=== PATIENT | female | born 1965 | race Caucasian/White ===

== ENCOUNTER 2019-03-12 11:08 | Day surgery (SDC) | payer MEDICAID ==
[~2019-03-12] VITALS: Ht 162.6 cm; Wt 87.4 kg
[2019-03-12 11:15] VITALS: BP 144/90
[2019-03-12] MEDS ORDERED: normal saline 1000ml 1,000 ML IV SCH (11:30)
[2019-03-12 12:06] LABS: BASOPHILS # (AUTO) 0.1 X10'3 (0-0.2); BASOPHILS % (AUTO) 1.2 % (0-1); EOSINOPHILS # (AUTO) 0.3 X10'3 (0-0.9); EOSINOPHILS % (AUTO) 6.3 % (0-6); HEMATOCRIT 41.3 % (35.0-45.0); HEMOGLOBIN 13.9 g/dl (12.0-16.0); LYMPHOCYTES # (AUTO) 2.1 X10'3 (1.1-4.8); LYMPHOCYTES % (AUTO) 45.1 % (21-51); MEAN CORPUSCULAR HEMOGLOBIN 31.1 PG (27.0-31.0); MEAN CORPUSCULAR HGB CONC 33.6 g/dL (33.0-36.5); MEAN CORPUSCULAR VOLUME 92.4 FL (78-98); MEAN PLATELET VOLUME 6.7 FL (7.4-10.4); MONOCYTES # (AUTO) 0.5 X10'3 (0-0.9); MONOCYTES % (AUTO) 10.3 % (2-12); NEUTROPHILS # (AUTO) 1.7 X10'3 (1.8-7.7); NEUTROPHILS % (AUTO) 37.1 % (42-75); PLATELET COUNT 435 X10'3 (140-440); RED BLOOD COUNT 4.46 X10'6 (4.20-5.60); WHITE BLOOD COUNT 4.6 X10'3 (4.5-11.0)
[2019-03-12 12:12] LABS: ALBUMIN 3.9 G/DL (3.4-5.0); ANION GAP 8 (8-16); BLOOD UREA NITROGEN 10 MG/DL (7-18); BUN/CREATININE RATIO 12.7 (6.6-38.0); CALCIUM 8.6 MG/DL (8.5-10.1); CHLORIDE 109 MMOL/L (99-107); CREATININE 0.79 MG/DL (0.40-0.90); GLUCOSE 100 MG/DL (70-104); POTASSIUM 3.6 MMOL/L (3.5-5.1); SODIUM 141 MMOL/L (135-145); TOTAL CARBON DIOXIDE 24.5 MMOL/L (24-32); eGFR 76 ML/MIN
[2019-03-12] MEDS ORDERED: fentaNYL/PF 50MCG/1 ML 2ML syringe IV PRN (13:15)
[2019-03-12] MEDS ORDERED: midazolam 2 mg/2 ml injection IV PRN (13:15)
[2019-03-12] MEDS ORDERED: heparin sodium, porcine/PF 100unit/ml 5ML syringe ICATH ONE (13:15)
[2019-03-12] MEDS ORDERED: LIDOcaine 1% (10mg/ml) 2ml vial SQ ONE (13:15)
[2019-03-12] MEDS ORDERED: midazolam 2 mg/2 ml injection ONE (13:18)
[2019-03-12] MEDS ORDERED: LIDOcaine 1%/PF 5ML 10 MG/ML VIAL ONE (13:18)
[2019-03-12] MEDS ORDERED: fentaNYL/PF 50MCG/1 ML 2ML syringe ONE (13:18)
[2019-03-12] MEDS ORDERED: heparin sodium, porcine/PF 100unit/ml 5ML syringe ONE (13:18)
[2019-03-12 14:57] VITALS: BP 120/62
[2019-03-12 15:15] VITALS: BP 134/86
[2019-03-12 15:30] VITALS: BP 125/82
== END 2019-03-12 15:55 | disposition home or self-care (01) ==
LOC: SSTAY O 11:08
PROVIDERS: ATTEND Radiology Diagnostic Radiology
DX: C50.412 Malignant neoplasm of upper-outer quadrant of left female breast (principal); Z87.442 Personal history of urinary calculi; Z87.891 Personal history of nicotine dependence; Z72.89 Other problems related to lifestyle
CPT/HCPCS: 36415; 36561; 76937; 77001; 80048; 85025; 99152; 99153; C1788; C1894; J1642; J2250; J3010; J7030; A6213

== ENCOUNTER 2022-08-05 09:06 | Emergency (ER) | payer MEDICAID ==
[~2022-08-05] VITALS: Ht 162.6 cm; Wt 83.6 kg
[2022-08-05 09:28] VITALS: BP 146/88
[2022-08-05] MEDS ORDERED: amox tr/potassium clavulanate 875/125mg TAB PO ONE (10:40)
[2022-08-05] MEDS ORDERED: AMOX-117 PO (10:45)
[2022-08-06] MEDS ORDERED: HYDR-3965 PO (01:59)
== END 2022-08-05 10:55 | disposition home or self-care (01) ==
LOC: ER 09:06
DX: K04.7 Periapical abscess without sinus (principal)
CPT/HCPCS: 99283

== ENCOUNTER 2022-08-06 00:20 | Emergency (ER) | payer MEDICAID ==
[~2022-08-06] VITALS: Ht 162.6 cm; Wt 83.6 kg
[~2022-08-06 00:20] MED LIST: AMOX-117 PO
[2022-08-06 00:30] VITALS: BP 139/82
[2022-08-06] MEDS ORDERED: HYDR-3965 PO (01:59)
[2022-08-06] MEDS ORDERED: HYDROcodone/acetaminophen 10/325mg tab PO ONE (02:00)
== END 2022-08-06 02:22 | disposition home or self-care (01) ==
LOC: ER 00:20
DX: K08.89 Other specified disorders of teeth and supporting structures (principal); Z79.899 Other long term (current) drug therapy
CPT/HCPCS: 99283

== ENCOUNTER 2022-08-06 14:59 | Emergency (ER) | payer MEDICAID ==
[~2022-08-06] VITALS: Ht 162.6 cm; Wt 83.0 kg
[~2022-08-06 14:59] MED LIST changes: +HYDR-3965 PO
[2022-08-06 15:02] VITALS: BP 178/94
[2022-08-06] MEDS ORDERED: HYDROcodone/acetaminophen 10/325mg tab PO ONE (18:15)
== END 2022-08-06 18:26 | disposition home or self-care (01) ==
LOC: ER 15:00
DX: K04.7 Periapical abscess without sinus (principal); Z72.89 Other problems related to lifestyle; Z79.899 Other long term (current) drug therapy
CPT/HCPCS: 99281; 99282

== ENCOUNTER 2025-04-06 02:20 | Emergency (ER) | payer BC, MEDICAID ==
[~2025-04-06] VITALS: Ht 162.6 cm; Wt 80.4 kg
[2025-04-06 02:23] VITALS: BP 183/100; PULSE 95; RESP 15; TEMP 97.6; O2SAT 95
[2025-04-06] MEDS: proparacaine 0.5% ophthalmic drops 15ml EACHEYE ONE (02:42)
[2025-04-06] MEDS ORDERED: ciprofloxacin 0.3% 2.5ml ophthalmic solution EACH EAR ONE (02:50)
[2025-04-06] MEDS ORDERED: CIPR2.5D21 LEFTEYE (02:51)
--- NOTE | 2025-04-06 02:52 | Physician Documentation ---
History of Present Illness ~ Chief Complaint: Eye Pain Stated Complaint: CONTACT LENSE STUCK IN EYE Time Seen by MD: 02:39 Primary Medical Doctor: [facility] HPI This is a 59-year-old female who presents for evaluation of foreign body sensation. She feels that she has a contact lens stuck in her eye. She states that she fell asleep with the contact lenses and developed a foreign body sensation this morning. She has a attempted to wash it out, but was not successful. She had rubbed her eye so much that the eyelids are no swollen. No palliating factors. No aggravating factors. This never happened in the past. Denies any other injury. Denies concerns for tobacco, alcohol or illicit substances Medication Reconciliation Allergies: Coded Allergies: No Known Allergies (Unverified , 04/06/25) Past Medical History Past Medical History: No Pertinent History Past Surgical History: noncontributory Alcohol Use: Occasionally Drug Use: none Lives In: Home Occupation: employed Review of Systems ROS 10 point review of systems was performed and unless noted above in HPI is negative for acute process/complaint. Physical Exam Vital Signs: Temperature: 97.6, Source: Temporal, Heart Rate: 95, Respiratory Rate: 15, BP: 183/100, Pulse Oximetry: 95, Weight: 80.400 Physical Exam Physical examination: GENERAL: Awake, alert, oriented, GCS 15, no apparent distress, non-toxic appeari ng, answers questions, follows commands appropriately. HEENT: Atraumatic, normocephalic, pupils equal, extraocular muscles intact Active gross movements, sclerae anicteric, mucus membranes moist, no stridor. NECK: Midline, no JVD CARDIOVASCULAR: Good skin perfusion without evidence of pallor, mottling. PULMONARY: Nonlabored, symmetric chest rise, no audible wheezing, no accessory muscle use, no respiratory distress, speaking in full sentences. GASTROINTESTINAL: Not distended. NEUROLOGIC: Lucid with normal mental status. Normal facial symmetry. Moves all extremities symmetrically and with purpose. No truncal ataxia. Speech is fluid without evidence of dysarthria or aphasia, no focal deficits appreciated. EXTREMITIES: Acute deformities Skin: warm, dry PSYCHIATRIC: Normal affect, normal insight, normal concentration. Focused exam: [Eye exam was performed with the eversion of eyelids. I do not appreciate a foreign body in the eye. Anterior chamber is not shallow. There is no hypopyon or hyphema. Extraocular range of motion is intact and without pain. There is erythema and mild edema of superior and inferior eyelids. Fluorescein examination shows large area of corneal abrasion between 11 and 8:00 p.m. shaped like the [facility] lie analysis side.] Progress Results/Orders Results/Orders Completed Orders - JUNE MALAVE DO Proparacaine Ophth Solution (Alcaine Oph (04/06/25 02:40) Vital Signs 04/06/25 02:23 Temp 97.6 Pulse 95 Resp 15 B/P (MAP) 183/100 Pulse Ox 95 Medical Decision Making Findings Facility Status: ED Holds, RME process The plan was discussed with the patient, who demonstrates clear understanding of the plan and is in agreement with the plan unless otherwise noted in the chart. All questions have been answered, all concerns were addressed unless otherwise documented. I was available throughout their ED stay for frequent reassessment and questions. Differential Diagnoses (considered and possible or likely): [Retained contact lens, corneal abrasion, scleral abrasion, conjunctivitis, unlikely globe rupture. No evidence of traumatic injury to the eye. No evidence of preseptal cellulitis or orbital cellulitis.] ??Differential Diagnoses (considered and unlikely, not requiring evaluation currently): [See above] MDM Data Please see [facility] for the following: Independent Historians and external Records Review. Historian: [Patient] Independent Historians: ?[None] Medication Management: [Reviewed medication list] Social History and determinants: [Reviewed] Please see the body of the note for the following: Any independent interpretations of ECG, imaging studies. All vitals signs/haemodynamics, ordered tests were independently reviewed and interpreted by myself. Nursing triage complaint and vitals reviewed, additional nursing notes were reviewed as available and I agree unless otherwise noted or documented in contradiction in the chart Vital Signs: Independently reviewed Labs: Independently interpreted Imaging: Independently interpreted Old Medical Records: Independently reviewed, see [facility] for relevant summary and information Pulse Oximetry: [100%] interpreted as [normal on room air] by me [[employer] Manager: [Regular Rate, Regular rhythm, no ectopy, NSR] reviewed and interpreted by me] Additionally notably showing: [Hemodynamically stable] Tests considered but not ordered include: [Hematologic workup and imaging has been considered but does not appear to be necessary given clinical nature of diagnosis] Social Determinants of Health Impact: Patient was evaluated in [facility] or [facility] [place] with [place] access to healthcare due to below par ratio of patient to medical providers. [] Comorbid Conditions Impacting Present Evaluation and Care/Treatment: [History of cancer] Management Discussions with other Healthcare Providers: [None] Treatment and Disposition Medication Management (Given or considered): [Proparacaine completely resolved her symptoms.]. See EMR for details Consideration for Hospitalization/Escalation/Deescalation of Care: Admission for observation has been considered, [however the patient is able to tolerate p.o., their symptoms are controlled, they are able to rely on oral medications, and their chief complaint/diagnosis can be managed on outpatient basis.] ?ED Course:?[There was no foreign body in the eye. However she does have corneal abrasion.] ?Shared decision making:?[Patient is hemodynamically stable for discharge home with follow with their primary care provider. [ ] Specific and cautious return precautions provided and discussed with full understanding. Any incidental findings were also discussed and follow up recommendations given. [] All que stions answered. Patient/family were able to verbalize back return precautions. Patient/family agree to plan. Copies of imaging and laboratory studies were provided.] Code status:?FULL Please see the full Electronic Medical Record for full details of nursing documentation, medications list, other records of complete past medical history and conditions, vital signs, laboratory studies, and any radiologic study interpretations by radiologists. Portions of this note were completed using [employer] dictation software and as a result there may exist minor errors in spelling. I have reviewed elements of past family and social history and agree as included in note. Departure Disposition: 01 HOME / SELF CARE / HOMELESS Impression: Primary Impression: Corneal abrasion Condition: Improved Discharge Instructions: Corneal Abrasion Additional Instructions: Follow-up with the plug machine operator of your choice in 1-3 days. Return immediately if there is any vision changes. Did not wear contact lenses for a minimum of a week. Referrals: NO PRIMARY CARE PROVIDER (PCP) Prescriptions Ciprofloxacin Hcl Ophth* (Ciloxan 0.35 Ophth Drops*) 2.5 Ml Bottle 1-2 DROP LEFTEYE Q4HWA for 7 Days, #5 ML Prov: JUNE MALAVE DO 04/06/25 Education Educated: Patient Educated regarding: diagnosis, treatment, prognosis Signature Scribe Signature: No scribe Attestation: Date: Apr 06, 2025 Time: 02:51 This note accurately reflects clinical decisions, work performed by myself, DO FRIEDA Roche NICHOLAS M DO Apr 06, 2025 02:51
== END 2025-04-06 03:04 | disposition home or self-care (01) ==
LOC: ER 02:20
DX: S05.02XA Injury of conjunctiva and corneal abrasion without foreign body, left eye, initial encounter (principal); S05.01XA Injury of conjunctiva and corneal abrasion without foreign body, right eye, initial encounter; Z72.89 Other problems related to lifestyle; X58.XXXA Exposure to other specified factors, initial encounter; Y93.89 Activity, other specified; Y92.89 Other specified places as the place of occurrence of the external cause; Y99.8 Other external cause status
CPT/HCPCS: 99283